=== PATIENT | male | born 1985 | race Caucasian/White ===

== ENCOUNTER 2021-05-28 06:29 | Day surgery (SDC) | payer BC ==
[~2021-05-28 06:29] MED LIST: Lactated Ringers 1,000 ML IV SCH
[2021-05-28] MEDS ORDERED: Midazolam 1 MG/ML 2 ML SDV ONE (06:58)
[2021-05-28] MEDS ORDERED: Propofol 200 MG/20 ML SDV ONE (06:58)
[2021-05-28] MEDS ORDERED: Lactated Ringers 1,000 ML IV SCH (07:00)
== END 2021-05-28 09:25 | disposition home or self-care (01) ==
LOC: VM.SDS 06:29
PROVIDERS: ATTEND Student in an Organized Health Care Education/Training Program
DX: K62.89 Other specified diseases of anus and rectum (principal); E66.9 Obesity, unspecified; K52.9 Noninfective gastroenteritis and colitis, unspecified; J45.909 Unspecified asthma, uncomplicated; Z80.0 Family history of malignant neoplasm of digestive organs; Z79.899 Other long term (current) drug therapy; Z98.890 Other specified postprocedural states
CPT/HCPCS: 00811; J2250; J2704; J7120

== ENCOUNTER 2021-05-29 12:50 | Emergency (ER) | payer BC ==
[2021-05-29] MEDS ORDERED: Orphenadrine 60 MG/2 ML Inj IM ONE (13:05)
[2021-05-29] MEDS ORDERED: Ketorolac 30 MG/ML SDV IM ONE (13:05)
[2021-05-29] MEDS ORDERED: Dexamethasone 4 MG/ML SDV IM ONE (13:05)
== END 2021-05-29 13:43 | disposition home or self-care (01) ==
LOC: VM.ED 12:50
DX: M54.41 Lumbago with sciatica, right side (principal); J45.909 Unspecified asthma, uncomplicated; E66.9 Obesity, unspecified; Z86.16 Personal history of COVID-19; Z79.899 Other long term (current) drug therapy
CPT/HCPCS: 72100; 96372; 99283; J1100; J1885; J2360